=== PATIENT | male | born 1970 ===

== ENCOUNTER 2021-08-13 21:27 | Emergency (ER) | payer OTHER ==
[~2021-08-13] VITALS: Ht 175.3 cm; Wt 96.0 kg
[2021-08-13 21:34] VITALS: BP 138/76
== END 2021-08-13 23:30 | disposition left against medical advice (07) ==
LOC: ER 21:27
DX: R07.81 Pleurodynia (principal); Z53.21 Procedure and treatment not carried out due to patient leaving prior to being seen by health care provider